=== PATIENT | male | born 1955 | race Native Hawaiian/Other Pacific Islander ===

== ENCOUNTER → 2017-07-22 | Outpatient (CLI) | payer BC ==
[2017-07-22 09:45] LABS: Basophils % (A) 0 %; Eosinophils # (A) 0.4 k/uL (0-0.7); Eosinophils % (A) 4 %; HGB 14.8 gm/dL (13.0-17.5); Lymphocytes # (A) 2.4 k/uL (1.0-4.8); Lymphocytes % (A) 26 %; MCH 30.8 pg (25.0-35.0); MCHC 33.6 g/dL (31.0-37.0); MCV 91.7 fL (80.0-100.0); Mean Platelet Volume 8.5; Monocytes # (A) 0.4 k/uL (0-1.0); Monocytes % (A) 5 %; Neutrophils # (A) 5.8 k/uL (1.3-7.7); Neutrophils % (A) 63 %; Platelet Count 266 k/uL (150-450); RDW 12.3 % (11.5-15.5); WBC 9.1 k/uL (3.8-10.6)
[2017-07-22 10:07] LABS: ALT 44 U/L (21-72); AST 17 U/L (17-59); Albumin 4.3 g/dL (3.5-5.0); Alkaline Phosphatase 87 U/L (38-126); Anion Gap 13 mmol/L; Blood Urea Nitrogen 17 mg/dL (9-20); Calcium 9.4 mg/dL (8.4-10.2); Carbon Dioxide 25 mmol/L (22-30); Chloride 106 mmol/L (98-107); Cholesterol 137 mg/dL (<200); Glucose 154 mg/dL (74-99); HDL Cholesterol 56 mg/dL (40-60); LDL Cholesterol,Calculated 70 mg/dL (0-99); Potassium 4.7 mmol/L (3.5-5.1); Sodium 144 mmol/L (137-145); Total Bilirubin 0.5 mg/dL (0.2-1.3); Total Protein 6.5 g/dL (6.3-8.2); Triglycerides 54 mg/dL (<150)
[2017-07-22 23:08] LABS: Hemoglobin A1C 6.7 % (4.0-6.0)
== END | disposition home or self-care (01) ==
LOC: LABWHC1 09:12
PROVIDERS: ATTEND Family Medicine
DX: Z00.01 Encounter for general adult medical examination with abnormal findings (principal); I10 Essential (primary) hypertension; E11.9 Type 2 diabetes mellitus without complications; I25.10 Atherosclerotic heart disease of native coronary artery without angina pectoris
CPT/HCPCS: 36415; 80053; 80061; 83036; 84443; 85025

== ENCOUNTER 2018-02-05 09:04 | Day surgery (SDC) | payer BC ==
[2018-01-31 10:19] VITALS: BMI 29.5
[~2018-02-05 09:04] MED LIST: DEXAMETHASONE SOD PHOSPHATE 10 MG/ML 1 ML VIAL IV ONE; HYDROmorphone 0.5 MG/0.5 ML SYRINGE IVP PRN; LACTATED RINGERS 1,000 ML IV SCH; LIDOCAINE 1% 20 ML VIAL (10MG/ML) FOR IV START INTRADERMA PRN; ONDANSETRON 4 MG/2 ML VIAL IVP ONE; SCOPOLAMINE 1.5MG/72HR PATCH TRANSDERM ONE
[2018-02-05 09:18] VITALS: RESP 16; TEMP 97
[2018-02-05 09:29] LABS: Glucose,Whole Blood 224 mg/dL (75-99)
[2018-02-05] MEDS ORDERED: INSULIN ASPART 100 UNIT/ML 1 ML 10 ML VIAL SQ ONE (09:37)
[2018-02-05] MEDS ORDERED: LIDOCAINE 1% INJ 10MG/ML (20 ML MDV) ONE (10:13)
[2018-02-05] MEDS ORDERED: PROPOFOL 10 MG/ML 20 ML VIAL IV ONE (10:13)
--- NOTE | 2018-02-05 10:27 | P.GSHP ---
History of Present Illness H&P Date: 02/05/18 Chief Complaint: Screening colonoscopy This is a 62-year-old male who presents today for screening colonoscopy. He's never had a colonoscopy before. Past Medical History Past Medical History: Coronary Artery Disease (CAD), Diabetes Mellitus, Hypertension Additional Past Medical History / Comment(s): clavicle fracture History of Any Multi-Drug Resistant Organisms: None Reported Past Surgical History: Cholecystectomy, Heart Catheterization With Stent Past Anesthesia/Blood Transfusion Reactions: No Reported Reaction Date of Last Stent Placement:: 10/14/15 Smoking Status: Light tobacco smoker - Past Family History Father Family Medical History: Cancer Additional Family Medical History / Comment(s): from prostate cancer Mother Family Medical History: No Reported History Medications and Allergies Home Medications Medication Instructions Recorded Confirmed Type Lisinopril [Prinivil] 10 mg PO DAILY 09/16/15 02/05/18 History Loratadine [Claritin] 10 mg PO DAILY PRN 09/16/15 02/05/18 History Atorvastatin [Lipitor] 80 mg PO HS #90 tab 10/15/15 02/05/18 Rx Metoprolol Tartrate [Lopressor] 25 mg PO BID #60 tab 10/15/15 02/05/18 Rx Nitroglycerin Sl Tabs [Nitrostat] 0.4 mg SUBLINGUAL Q5M PRN #30 tab 10/15/15 Rx Aspirin EC [Ecotrin] 325 mg PO DAILY 01/31/18 02/05/18 History Desvenlafaxine Succinate [Pristiq] 100 mg PO HS 01/31/18 02/05/18 History sitaGLIPtin PHOS/metFORMIN HCL 1 each PO BID 01/31/18 02/05/18 History [Janumet 50-1,000 mg Tablet] Allergies Allergy/AdvReac Type Severity Reaction Status Date / Time Penicillins Allergy Rash/Hives Verified 01/31/18 09:50 Surgical - Exam Vital Signs Temp Pulse Resp BP Pulse Ox 97.0 F L 75 16 159/82 98 02/05/18 09:17 02/05/18 09:17 02/05/18 09:17 02/05/18 09:17 02/05/18 09:17 - General well developed, no distress - Eyes PERRL - ENT normal pinna - Neck no masses - Respiratory normal expansion - Cardiovascular Rhythm: regular - Abdomen Abdomen: soft, non tender Results - Labs Abnormal Lab Results - Last 24 Hours (Table) 02/05/18 Range/Units 09:25 POC Glucose (mg/dL) 224 H (75-99) mg/dL Assessment and Plan Assessment: We'll perform screening colonoscopy.
[2018-02-05 10:50] LABS: Glucose,Whole Blood 192 mg/dL (75-99)
--- NOTE | 2018-02-05 10:52 | P.OP ---
Date of Procedure: 02/05/18 Preoperative Diagnosis: Screening colonoscopy Postoperative Diagnosis: Colon polyps Procedure(s) Performed: Colonoscopy Anesthesia: MAC Surgeon: Wali Alfaro Pathology: other (Rectal polyp, cecal polyp) Condition: stable Disposition: PACU Description of Procedure: The patient's placed on the endoscopy table in the lateral position. He received IV sedation. Digital rectal exam was performed which revealed no abnormalities. Flexible colonoscope was then placed patient anus and passed throughout the entire colon. The ileocecal valve was visualized. In the cecum there was a small sessile polyp was removed with the cold forcep. Scope was withdrawn remainder the ascending, transverse and descending colon appeared normal. Sigmoid colon appeared normal. Scope summer back the rectum and another sessile polyp was seen this removed with the cold forcep. Scope was withdrawn for patient.
[2018-02-05 11:12] VITALS: BP 132/74; PULSE 73
== END 2018-02-05 11:27 | disposition home or self-care (01) ==
LOC: ORWHC2ENDO 09:04
PROVIDERS: ATTEND Surgery
DX: Z12.11 Encounter for screening for malignant neoplasm of colon (principal); D12.0 Benign neoplasm of cecum; K62.1 Rectal polyp; I25.10 Atherosclerotic heart disease of native coronary artery without angina pectoris; E11.9 Type 2 diabetes mellitus without complications; E78.5 Hyperlipidemia, unspecified; I10 Essential (primary) hypertension; F32.9 Major depressive disorder, single episode, unspecified; F17.200 Nicotine dependence, unspecified, uncomplicated; Z95.5 Presence of coronary angioplasty implant and graft; Z79.84 Long term (current) use of oral hypoglycemic drugs; Z79.82 Long term (current) use of aspirin; Z79.899 Other long term (current) drug therapy; Z88.0 Allergy status to penicillin; Z90.49 Acquired absence of other specified parts of digestive tract
CPT/HCPCS: 88305; 45380; J2001; J2704

== ENCOUNTER 2019-09-07 16:58 | Emergency (ER) | payer BC ==
[2019-09-07 17:13] VITALS: BP 134/79; PULSE 90; RESP 18; TEMP 97.8
[2019-09-07] MEDS ORDERED: ERYTHROMYCIN 5 MG/GM OPHTH OINT 1 GM TUBE BOTH EYES STA (17:27)
[2019-09-07] MEDS ORDERED: PROPARACAINE 0.5% OPHTH DROPS 15 ML BTL LEFT EYE STA (17:27)
[2019-09-07] MEDS ORDERED: FLUORESCEIN STRIPS 1 MG STRIP LEFT EYE ONE (17:27)
--- NOTE | 2019-09-07 17:48 | ED ---
General Adult HPI - General Chief complaint: Eye Problems Stated complaint: FB IN EYE Time Seen by Provider: 09/07/19 17:15 Source: patient, RN notes reviewed Mode of arrival: ambulatory Limitations: no limitations - History of Present Illness Initial comments: 64-year-old male presents to the emergency department for left eye pain. Patient states he was working on the ceiling when a piece of a ceiling tile fell into his eye. Patient states he flushed this vigorously at home in the shower. However patient still feels like there is a piece stuck in his eye. Patient is up-to-date on tetanus 3 years ago. Patient denies contact use. Patient denies any visual deficits or changes. Patient has no other complaints at this time including shortness of breath, chest pain, abdominal pain, nausea or vomiting, headache, or visual changes. - Related Data Home Medications Medication Instructions Recorded Confirmed Lisinopril [Prinivil] 10 mg PO DAILY 09/16/15 02/05/18 Loratadine [Claritin] 10 mg PO DAILY PRN 09/16/15 02/05/18 Aspirin EC [Ecotrin] 325 mg PO DAILY 01/31/18 02/05/18 Desvenlafaxine Succinate [Pristiq] 100 mg PO HS 01/31/18 02/05/18 sitaGLIPtin PHOS/metFORMIN HCL 1 each PO BID 01/31/18 02/05/18 [Janumet 50-1,000 mg Tablet] Previous Rx's Medication Instructions Recorded Atorvastatin [Lipitor] 80 mg PO HS #90 tab 10/15/15 Metoprolol Tartrate [Lopressor] 25 mg PO BID #60 tab 10/15/15 Nitroglycerin Sl Tabs [Nitrostat] 0.4 mg SUBLINGUAL Q5M PRN #30 tab 10/15/15 Allergies Allergy/AdvReac Type Severity Reaction Status Date / Time Penicillins Allergy Rash/Hives Verified 09/07/19 17:13 Review of Systems ROS Statement: Those systems with pertinent positive or pertinent negative responses have been documented in the HPI. ROS Other: All systems not noted in ROS Statement are negative. Past Medical History Past Medical History: Coronary Artery Disease (CAD), Diabetes Mellitus, Hypertension Additional Past Medical History / Comment(s): clavicle fracture History of Any Multi-Drug Resistant Organisms: None Reported Past Surgical History: Cholecystectomy, Heart Catheterization With Stent Past Anesthesia/Blood Transfusion Reactions: No Reported Reaction Date of Last Stent Placement:: 10/14/15 Past Psychological History: No Psychological Hx Reported Smoking Status: Former smoker Past Alcohol Use History: Daily Past Drug Use History: None Reported - Past Family History Father Family Medical History: Cancer Additional Family Medical History / Comment(s): from prostate cancer Mother Family Medical History: No Reported History General Exam Limitations: no limitations General appearance: alert, in no apparent distress Head exam: Present: atraumatic, normocephalic, normal inspection Eye exam: Present: normal appearance, PERRL, EOMI, conjunctival injection (Conjunctival erythema without evidence of foreign body). Absent: scleral icterus, periorbital swelling ENT exam: Present: normal exam, mucous membranes moist Neck exam: Present: normal inspection, full ROM. Absent: tenderness, men ingismus, lymphadenopathy Respiratory exam: Present: normal lung sounds bilaterally. Absent: respiratory distress, wheezes, rales, rhonchi, stridor Cardiovascular Exam: Present: regular rate, normal rhythm, normal heart sounds. Absent: systolic murmur, diastolic murmur, rubs, gallop, clicks Neurological exam: Present: alert Psychiatric exam: Present: normal affect, normal mood Course Vital Signs 09/07/19 17:10 Temperature 97.8 F Pulse Rate 90 Respiratory 18 Rate Blood Pressure 134/79 O2 Sat by Pulse 99 Oximetry Medical Decision Making - Medical Decision Making The eye was numbed with proparacaine which completely alleviated his pain. I did a thorough inspection there is no evidence of foreign body in the conjunctiva. I flipped both eyelids without evidence of foreign body. The eye was stained with fluorescein stain in vision as was the Wood's lamp. There is abrasion at 12:00. Negative Hank sign. Patient is already up-to-date on tetanus. Was given erythromycin ointment. Patient will follow up with ophthalmology and primary care. He'll return here for any worsening symptoms. Disposition Clinical Impression: Corneal abrasion Disposition: HOME SELF-CARE Condition: Good Instructions (If sedation given, give patient instructions): Corneal Abrasion (ED) Additional Instructions: Please apply ointment every 6 hours for 7 days. Please follow-up with primary care and ophthalmology. If you have any worsening symptoms return here to the emergency room. Is patient prescribed a controlled substance at d/c from ED?: No Referrals: Loreto Salamanca MD [Primary Care Provider] - 1-2 days Argentina Anderson MD [STAFF PHYSICIAN] - 1-2 days Time of Disposition: 17:47
== END 2019-09-07 18:15 | disposition home or self-care (01) ==
LOC: EC 16:58
DX: S05.02XA Injury of conjunctiva and corneal abrasion without foreign body, left eye, initial encounter (principal); I25.10 Atherosclerotic heart disease of native coronary artery without angina pectoris; E11.9 Type 2 diabetes mellitus without complications; I10 Essential (primary) hypertension; Z79.82 Long term (current) use of aspirin; Z79.84 Long term (current) use of oral hypoglycemic drugs; Z79.899 Other long term (current) drug therapy; Z88.0 Allergy status to penicillin; Z87.891 Personal history of nicotine dependence; Z95.5 Presence of coronary angioplasty implant and graft; W20.8XXA Other cause of strike by thrown, projected or falling object, initial encounter
CPT/HCPCS: 99283

== ENCOUNTER → 2020-08-21 | Outpatient (CLI) | payer BC ==
[2020-08-21 14:21] LABS: Chol/HDL Ratio 2.39; LDL Cholesterol,Calculated 50.8 mg/dL (0.0-131.0); VLDL Calculation 17.2 mg/dL (5.00-40.00)
== END | disposition home or self-care (01) ==
LOC: LABWHC1 07:38
PROVIDERS: ATTEND Internal Medicine Cardiovascular Disease
DX: E78.2 Mixed hyperlipidemia (principal)
CPT/HCPCS: 36415; 80061; 84450; 84460

== ENCOUNTER 2020-12-14 13:00 | Observation (INO) | payer BC ==
--- NOTE | 2020-12-14 13:24 | ED ---
Chest Pain HPI - General Chief Complaint: Chest Pain Stated Complaint: Chest Pain Source: patient, EMS Mode of arrival: ambulatory Limitations: no limitations - History of Present Illness Initial Comments: 65-year-old male, pt of Dr. Loreto Salamanca, past medical history of coronary artery disease status post 1 stent 4 years ago presents emergency room with reported chest and abdominal pain which started this morning. He states that he had significant onset of pressure in his epigastric region which radiated up into his chest. States that it was 10 out of 10 pain. He had associated shortness of breath and diaphoresis. Denies any nausea or vomiting. called EMS. They did provide him with a nitro which resolved his pain. He takes a 325 mg aspirin daily. Patient arrives stating that the pressure is 4 out of 10. Admits to normal bowel or bladder function. No fevers, chills or cough. No other alleviating, Perceptin modifying factors - Related Data Home Medications Medication Instructions Recorded Confirmed Lisinopril [Prinivil] 10 mg PO DAILY 09/16/15 12/14/20 Aspirin EC [Ecotrin] 325 mg PO DAILY 01/31/18 12/14/20 Ascorbic Acid [Vitamin C] 1,000 mg PO DAILY 12/14/20 12/14/20 Cholecalciferol [Vitamin D3 (25 50 mcg PO DAILY 12/14/20 12/14/20 Mcg = 1000 Iu)] Dapagliflozin Propanediol [Farxiga] 10 mg PO DAILY 12/14/20 12/14/20 Lidocaine 5% Patch [Lidoderm 5% 1 patch TOPICAL DAILY PRN 12/14/20 12/14/20 Patch] Magnesium Oxide 400 mg PO DAILY 12/14/20 12/14/20 Shoshoni-3 Fatty Acids [Shoshoni-3] 1,000 mg PO DAILY 12/14/20 12/14/20 Thiamine [Vitamin B-1] 100 mg PO DAILY 12/14/20 12/14/20 sitaGLIPtin PHOS/metFORMIN HCL 1 tab PO BID 12/14/20 12/14/20 [Janumet Xr 50-1,000 mg Tablet] Previous Rx's Medication Instructions Recorded Atorvastatin [Lipitor] 80 mg PO HS #90 tab 10/15/15 Metoprolol Tartrate [Lopressor] 25 mg PO BID #60 tab 10/15/15 Famotidine [Pepcid] 20 mg PO BID #60 tablet 12/15/20 Allergies Allergy/AdvReac Type Severity Reaction Status Date / Time Penicillins Allergy Rash/Hives Verified 12/14/20 16:32 Review of Systems ROS Statement: Those systems with pertinent positive or pertinent negative responses have been documented in the HPI. ROS Other: All systems not noted in ROS Statement are negative. EKG Findings - EKG Comments: EKG Findings:: EKG demonstrates normal sinus rhythm with a ventricular rate 69. IL interval 160. QRS 90. QTC of 417. Q wave in lead 3. J-point elevation in the inferior leads. No acute ST segment elevations or reciprocal depressions Past Medical History Past Medical History: Coronary Artery Disease (CAD), Diabetes Mellitus, Hypertension Additional Past Medical History / Comment(s): clavicle fracture History of Any Multi-Drug Resistant Organisms: None Reported Past Surgical History: Cholecystectomy, Heart Catheterization With Stent Past Anesthesia/Blood Transfusion Reactions: No Reported Reaction Date of Last Stent Placement:: 10/14/15 Past Psychological History: No Psychological Hx Reported Smoking Status: Never smoker Past Alcohol Use History: Daily Past Drug Use History: None Reported - Past Family History Father Family Medical History: Cancer Additional Family Medical History / Comment(s): from prostate cancer Mother Family Medical History: No Reported History General Exam Limitations: no limitations General appearance: alert, in no apparent distress Head exam: Present: atraumatic, normocephalic, normal inspection Eye exam: Present: normal appearance, PERRL, EOMI. Absent: scleral icterus, conjunctival injection, periorbital swelling ENT exam: Present: normal exam, mucous membranes moist Neck exam: Present: normal inspection. Absent: tenderness, meningismus, lymphadenopathy Respiratory exam: Present: normal lung sounds bilaterally. Absent: respiratory distress, wheezes, rales, rhonchi, stridor Cardiovascular Exam: Present: regular rate, normal rhythm, normal heart sounds. Absent: systolic murmur, diastolic murmur, rubs, gallop, clicks GI/Abdominal exam: Present: soft, tenderness (epigastric), normal bowel sounds. Absent: distended, guarding, rebound, rigid Extremities exam: Present: normal inspection, full ROM, normal capillary refill. Absent: tenderness, pedal edema, joint swelling, calf tenderness Back exam: Present: normal inspection Neurological exam: Present: alert, oriented X3, CN II-XII intact Psychiatric exam: Present: normal affect, normal mood Skin exam: Present: warm, dry, intact, normal color. Absent: rash Course Vital Signs 12/14/20 12/14/20 12/14/20 13:02 13:11 14:00 Temperature 97.8 F Pulse Rate 69 69 69 Respiratory 16 13 18 Rate Blood Pressure 153/88 133/84 O2 Sat by Pulse 100 100 100 Oximetry 12/14/20 12/14/20 12/14/20 14:32 15:00 15:53 Temperature Pulse Rate 64 64 75 Respiratory 18 8 L 18 Rate Blood Pressure 111/79 111/79 130/88 O2 Sat by Pulse 100 100 100 Oximetry 12/14/20 12/14/20 12/14/20 16:00 17:00 17:50 Temperature Pulse Rate 70 64 77 Respiratory 18 6 L 16 Rate Blood Pressure 130/88 130/88 136/84 O2 Sat by Pulse 99 Oximetry 12/14/20 12/14/20 12/14/20 18:00 19:00 20:00 Temperature Pulse Rate 76 66 66 Respiratory 19 14 12 Rate Blood Pressure 136/84 136/84 118/78 O2 Sat by Pulse 99 Oximetry 12/14/20 12/14/20 12/14/20 21:00 22:00 22:30 Temperature 98.0 F Pulse Rate 60 71 66 Respiratory 12 16 18 Rate Blood Pressure 118/78 118/78 133/83 O2 Sat by Pulse 100 Oximetry 12/14/20 12/15/20 12/15/20 23:00 00:00 01:00 Temperature Pulse Rate 70 63 Respiratory 15 14 Rate Blood Pressure 133/83 133/83 133/83 O2 Sat by Pulse Oximetry 12/15/20 12/15/20 12/15/20 01:24 02:00 02:44 Temperature 98.4 F Pulse Rate 67 56 L 59 L Respiratory 18 18 18 Rate Blood Pressure 127/81 127/81 O2 Sat by Pulse 100 Oximetry 12/15/20 12/15/20 12/15/20 04:30 05:00 06:00 Temperature 97.8 F Pulse Rate 59 L 62 70 Respiratory 18 16 18 Rate Blood Pressure 127/81 129/89 O2 Sat by Pulse 100 Oximetry 12/15/20 12/15/20 12/15/20 07:00 09:05 12:47 Temperature 98 F Pulse Rate 57 L 75 106 H Respiratory 16 18 19 Rate Blood Pressure 129/89 135/91 133/90 O2 Sat by Pulse 99 96 Oximetry 12/15/20 15:40 Temperature 98 F Pulse Rate 106 H Respiratory 19 Rate Blood Pressure 133/90 O2 Sat by Pulse 96 Oximetry Chest Pain MDM - MDM Upon arrival patient is placed under a trauma 2. Thorough history and physical exam was performed. IV is established. I did offer her pain medications are patient refused. He reports his pain is 2 out of 10 at this time. I reviewed her studies were conducted. D-dimer 0.5. Lipase is 7531. Troponin negative. Chest x-ray was performed which uncertain acute crit opponent process. CT the patient's abdomen and pelvis demonstrates upper to mid abdominal enteritis as there are some prominent small bowel loops. Results are discussed with the patient. Did recommend admission for pancreatitis for which the patient did agree to. Spoke with Dr. Nowak who agreed to admit the patient. Patient awaiting a bed on the floor in stable condition Disposition Clinical Impression: Chest pain, Epigastric pain Disposition: HOME SELF-CARE Condition: Stable Is patient prescribed a controlled substance at d/c from ED?: No Decision to Admit Reason: Admit from EC Decision Date: 12/14/20 Decision Time: 15:50
[2020-12-14 13:40] LABS: Basophils # (A) 0.1 k/uL (0-0.2); Basophils % (A) 1 %; Eosinophils # (A) 0.6 k/uL (0-0.7); Eosinophils % (A) 7 %; HCT 42.4 % (39.0-53.0); HGB 14.6 gm/dL (13.0-17.5); Lymphocytes # (A) 1.7 k/uL (1.0-4.8); Lymphocytes % (A) 18 %; MCH 32.8 pg (25.0-35.0); MCHC 34.4 g/dL (31.0-37.0); MCV 95.4 fL (80.0-100.0); Mean Platelet Volume 8.6; Monocytes # (A) 0.4 k/uL (0-1.0); Monocytes % (A) 4 %; Neutrophils # (A) 6.7 k/uL (1.3-7.7); Neutrophils % (A) 70 %; Platelet Count 247 k/uL (150-450); RBC 4.44 m/uL (4.30-5.90); RDW 12.2 % (11.5-15.5); WBC 9.6 k/uL (3.8-10.6)
--- NOTE | 2020-12-14 13:51 | XR ---
EXAMINATION TYPE: XR chest 2V DATE OF EXAM: 12/14/2020 COMPARISON: Chest x-ray September 16, 2015 HISTORY: Chest pressure and pain. TECHNIQUE: Frontal and lateral views of the chest are obtained. FINDINGS: There is no suspicious focal air space opacity, pleural effusion, or pneumothorax seen. T he cardiac silhouette size is stable and within normal limits. Multilevel spurring in thoracic spine redemonstrated. Cholecystectomy clips are noted. IMPRESSION: No acute cardiopulmonary process. No significant change from prior.
[2020-12-14 13:52] LABS: ALT 57 U/L (4-49); AST 109 U/L (17-59); African American GFR (CKD) >90 (>60 ml/min/1.73 sqM); Albumin 3.9 g/dL (3.5-5.0); Alkaline Phosphatase 93 U/L (38-126); Anion Gap 10 mmol/L; Blood Urea Nitrogen 16 mg/dL (9-20); Calcium 9.3 mg/dL (8.4-10.2); Carbon Dioxide 17 mmol/L (22-30); Chloride 109 mmol/L (98-107); Glucose 167 mg/dL (74-99); Magnesium 2.1 mg/dL (1.6-2.3); Non-African American GFR(CKD) >90 (>60 ml/min/1.73 sqM); Sodium 136 mmol/L (137-145); Total Bilirubin 0.9 mg/dL (0.2-1.3); Total Protein 6.3 g/dL (6.3-8.2)
[2020-12-14 14:01] LABS: INR 0.9 (<1.2); Partial Thromboplastin Time 22.8 sec (22.0-30.0)
[2020-12-14 14:52] LABS: Lipase 7531 U/L (23-300)
[2020-12-14] MEDS ORDERED: NALOXONE 0.4 MG/ML 1 ML VIAL IV PRN (15:51)
[2020-12-14] MEDS: SODIUM CHLORIDE 0.9% 1,000 ML IV SCH (15:56)
--- NOTE | 2020-12-14 16:02 | CT ---
EXAMINATION TYPE: CT abdomen pelvis w con DATE OF EXAM: 12/14/2020 COMPARISON: None. HISTORY: Upper Abdominal pain. CT DLP: 991.9 mGycm, Automated Exposure Control for Dose Reduction was Utilized. CONTRAST: CT scan of the abdomen and pelvis is performed without oral but with IV Contrast, patient injected wi th 100 mL of Isovue 300. FINDINGS: LUNG BASES: No significant abnormality is appreciated. LIVER/GB: Cholecystectomy clips. PANCREAS: No significant abnormality is seen. SPLEEN: No significant abnormality is seen. ADRENALS: No significant abnormality is seen. KIDNEYS: Symmetric cortical medullary uptake and excretion without hydronephrosis seen bilaterally. S ome prominence of the surrounding retroperitoneal fat noted. Poor distention of bladder with moderate concentric wall thickening. Correlate clinically. BOWEL: Suboptimal evaluation of bowel without enteric contrast. Stomach not greatly distended and irene s suboptimally evaluated. Few small bowel loops in the upper to mid abdomen are slightly prominent wi th air-fluid levels. No greater than 3.0 cm abnormal dilatation. Fecal material seen in nondistended colon. PROSTATE/SEMINAL VESICLES: Prostate gland poorly visualized may be surgically absent or small in size . LYMPH NODES: No greater than 1cm abdominal or pelvic lymph nodes are appreciated. OSSEOUS STRUCTURES: Grade 1 anterolisthesis L5 on S1. Mild to moderate disc space narrowing and vacuu m disc phenomenon L3-L4 and L4-L5 levels. Multilevel facet arthropathy in the mid to lower lumbar spi ne. OTHER: Small fat-containing left inguinal hernia. Moderate calcified plaque of the abdominal aorta ex tends into branch vessels IMPRESSION: Overall nonspecific but favor a nonobstructive bowel gas pattern. Correlate for upper to mid abdominal enteritis as there are some prominent small bowel loops with air-fluid levels noted.
[2020-12-14] MEDS: ATORVASTATIN 80 MG TAB PO SCH (22:47)
[2020-12-14] MEDS: METOPROLOL TARTRATE 25 MG TAB PO SCH (22:47)
[2020-12-15] MEDS: SODIUM CHLORIDE 0.9% 1,000 ML IV SCH ×2 (01:35→14:28)
[2020-12-15 07:39] VITALS: TEMP 98
--- NOTE | 2020-12-15 07:43 | P.HPIM ---
History of Present Illness This is a pleasant 65 years old male with past medical history of hypertension, diabetes mellitus, coronary artery disease status post stenting Presents because of upper abdominal pain of one-day duration, felt like 9/10 in severity currently is 0/10 inches resolved. Pain is in the epigastric area, nonradiating felt like pressure relieved by kneeling. No nausea vomiting. He had regular bowel movement yesterday. He denies chest pain or dyspnea. No fever. No urinary symptoms. He denies smoking or illicit drugs. Beers a day and occasional wine Vitals are stable and patient is afebrile. unremarkable cbc, inr, bmp. d-dimer is normal at 0.5. Liver enzymes slightly elevated with AST 109 and ALT 57. Jose is normal at 0. 9. Troponin I negative 3 and rotavirus not detected Lipase is elevated at 7531 CT of the abdomen and pelvis with contrast showing diffuse small bowel loops in the upper to mid abdomen are slightly prominent with air-fluid levels. Overall nonspecific but favor a nonobstructive bowel gas pattern. Correlate for upper to mid abdomen enteritis as there are some prominent small bowel loops with air- fluid levels noted. EKG showed normal sinus rhythm at [address]-T changes Chest x-ray: No acute process. Patient was started on normal saline at 1 30 mL/h and consult GI team Review of Systems CONSTITUTIONAL: No fever, no malaise, no fatigue. HEENT: No recent visual problems or hearing problems. Denied any sore throat. CARDIOVASCULAR: No orthopnea, PND, no palpitations, no syncope. PULMONARY: No shortness of breath, no cough, no hemoptysis. GASTROINTESTINAL: No diarrhea, no nausea, no vomiting, Normoactive bowel sounds. NEUROLOGICAL: No headaches, no weakness, no numbness. HEMATOLOGICAL: Denies any bleeding or petechiae. GENITOURINARY: Denies any burning micturition, frequency, or urgency. MUSCULOSKELETAL/RHEUMATOLOGICAL: Denies any joint pain, swelling, or any muscle pain. ENDOCRINE: Denies any polyuria or polydipsia. Past Medical History Past Medical History: Coronary Artery Disease (CAD), Diabetes Mellitus, Hypertension Additional Past Medical History / Comment(s): clavicle fracture History of Any Multi-Drug Resistant Organisms: None Reported Past Surgical History: Cholecystectomy, Heart Catheterization With Stent Past Anesthesia/Blood Transfusion Reactions: No Reported Reaction Date of Last Stent Placement:: 10/14/15 Past Psychological History: No Psychological Hx Reported Smoking Status: Never smoker Past Alcohol Use History: Daily Past Drug Use History: None Reported - Past Family History Father Family Medical History: Cancer Additional Family Medical History / Comment(s): from prostate cancer Mother Family Medical History: No Reported History Medications and Allergies Home Medications Medication Instructions Recorded Confirmed Type Lisinopril [Prinivil] 10 mg PO DAILY 09/16/15 12/14/20 History Atorvastatin [Lipitor] 80 mg PO HS #90 tab 10/15/15 12/14/20 Rx Metoprolol Tartrate [Lopressor] 25 mg PO BID #60 tab 10/15/15 12/14/20 Rx Aspirin EC [Ecotrin] 325 mg PO DAILY 01/31/18 12/14/20 History Ascorbic Acid [Vitamin C] 1,000 mg PO DAILY 12/14/20 12/14/20 History Cholecalciferol [Vitamin D3 (25 50 mcg PO DAILY 12/14/20 12/14/20 History Mcg = 1000 Iu)] Dapagliflozin Propanediol [Farxiga] 10 mg PO DAILY 12/14/20 12/14/20 History Lidocaine 5% Patch [Lidoderm] 1 patch TOPICAL DAILY PRN 12/14/20 12/14/20 History Magnesium Oxide 400 mg PO DAILY 12/14/20 12/14/20 History Calder-3 Fatty Acids [Calder-3] 1,000 mg PO DAILY 12/14/20 12/14/20 History Thiamine [Vitamin B-1] 100 mg PO DAILY 12/14/20 12/14/20 History sitaGLIPtin PHOS/metFORMIN HCL 1 tab PO BID 12/14/20 12/14/20 History [Janumet Xr 50-1,000 mg Tablet] Allergies Allergy/AdvReac Type Severity Reaction Status Date / Time Penicillins Allergy Rash/Hives Verified 12/14/20 16:32 Physical Exam Vitals: Vital Signs Temp Pulse Resp BP Pulse Ox 12/15/20 06:00 97.8 F 70 18 129/89 100 12/15/20 04:30 59 L 18 12/15/20 02:44 59 L 18 12/15/20 01:24 98.4 F 67 18 127/81 100 12/14/20 22:30 98.0 F 66 18 133/83 100 12/14/20 20:00 66 18 118/78 99 12/14/20 17:50 77 16 136/84 99 12/14/20 15:53 75 18 130/88 100 12/14/20 14:32 64 18 111/79 100 12/14/20 13:02 97.8 F 69 16 153/88 100 GENERAL: The patient is alert and oriented x3, not in any acute distress. Well developed, well nourished. HEENT: Pupils are round and equally reacting to light. EOMI. No scleral icterus. No conjunctival pallor. Normocephalic, atraumatic. No pharyngeal erythema. No thyromegaly. CARDIOVASCULAR: S1 and S2 present. No murmurs, rubs, or gallops. PULMONARY: Chest is clear to auscultation, no wheezing or crackles. ABDOMEN: Soft, nontender, nondistended, normoactive bowel sounds. No palpable organomegaly. MUSCULOSKELETAL: No joint swelling or deformity. EXTREMITIES: No cyanosis, clubbing, or pedal edema. NEUROLOGICAL: Gross neurological examination did not reveal any focal deficits. SKIN: No rashes. No petechiae Results CBC & Chem 7: 12/14/20 13:16 12/14/20 13:16 Labs: Abnormal Lab Results - Last 24 Hours (Table) 12/14/20 Range/Units 13:16 Sodium 136 L (137-145) mmol/L Chloride 109 H (98-107) mmol/L Carbon Dioxide 17 L (22-30) mmol/L Glucose 167 H (74-99) mg/dL AST 109 H (17-59) U/L ALT 57 H (4-49) U/L Lipase 7531 H (23-300) U/L Assessment and Plan Assessment: acute pancreatitis, could be alcoholic Possible enteritis with air-fluid level Alcohol abuse Hypertension Diabetes mellitus History of coronary artery disease status post stent placement Plan: This is a pleasant 65 years old male who presents with enteritis and pancreatitis Check liver ultrasound Follow-up GI consult Continue with gentle hydration Check a pro-calcitonin Labs and medication were reviewed.. Continue same treatment. Continue with symptomatic treatment. Resume home medication. Monitor lytes and vitals. DVT and GI prophylaxis. Further recommendations depends on the clinical course of the patient DVT prophylaxis: Subcutaneous heparin GI Prophylaxis: Ppi Prognosis is guarded
[2020-12-15 07:54] LABS: Basophils # (A) 0.1 k/uL (0-0.2); Basophils % (A) 1 %; Eosinophils # (A) 0.9 k/uL (0-0.7); Eosinophils % (A) 10 %; HCT 42.9 % (39.0-53.0); HGB 14.4 gm/dL (13.0-17.5); Lymphocytes # (A) 1.9 k/uL (1.0-4.8); Lymphocytes % (A) 21 %; MCH 32.6 pg (25.0-35.0); MCHC 33.7 g/dL (31.0-37.0); MCV 96.9 fL (80.0-100.0); Mean Platelet Volume 8.4; Monocytes # (A) 0.4 k/uL (0-1.0); Monocytes % (A) 5 %; Neutrophils # (A) 5.6 k/uL (1.3-7.7); Neutrophils % (A) 62 %; Platelet Count 227 k/uL (150-450); RBC 4.42 m/uL (4.30-5.90); RDW 12.3 % (11.5-15.5)
[2020-12-15 08:04] LABS: African American GFR (CKD) >90 (>60 ml/min/1.73 sqM); Anion Gap 7 mmol/L; Blood Urea Nitrogen 11 mg/dL (9-20); Carbon Dioxide 21 mmol/L (22-30); Chloride 110 mmol/L (98-107); Glucose 104 mg/dL (74-99); Lipase 268 U/L (23-300); Non-African American GFR(CKD) >90 (>60 ml/min/1.73 sqM); Sodium 138 mmol/L (137-145)
[2020-12-15 08:43] LABS: Albumin 3.4 g/dL (3.5-5.0); Albumin/Globulin Ratio 1.5; Bilirubin,Unconjugated 0.6 mg/dL (0.0-1.1); Globulin 2.3 g/dL; Total Bilirubin 0.7 mg/dL (0.2-1.3); Total Protein 5.7 g/dL (6.3-8.2)
--- NOTE | 2020-12-15 08:46 | US ---
EXAMINATION TYPE: US liver DATE OF EXAM: 12/15/2020 COMPARISON: CT 12/14/2020 CLINICAL HISTORY: elevated liver enz. GB removed. No pain. EXAM MEASUREMENTS: Liver Length: 15.3 cm CBD: 0.8 cm. This is slightly prominent. Normal up to 0.6 cm in a patient of this age Right Kidney: 11.2 x 5.8 x 6.6 cm Pancreas: Obscured by bowel gas Liver: wnl Gallbladder: Surgically absent Evidence for sonographic Trimble's sign: neg CBD: Minimally dilated Right Kidney: No hydronephrosis or masses seen. There is a rounded density measuring 3.[address] This is not identified on recent CT examination. Monitoring with ultrasound is recommended. This may be a dromedary hump. IMPRESSION: 1. Somewhat prominent common bile duct at 0.8 cm. Normal less than 0.6 cm. 2. 3 cm fullness of the mid inferior right renal cortex not identified on recent CT examination. Foll ow-up ultrasound in 6 months is recommended.
[2020-12-15] MEDS: METOPROLOL TARTRATE 25 MG TAB PO SCH (08:59)
[2020-12-15] MEDS: ATORVASTATIN 80 MG TAB PO SCH (09:00)
[2020-12-15] MEDS ORDERED: THIAMINE 100 MG TAB PO SCH (09:00)
[2020-12-15] MEDS ORDERED: PANTOPRAZOLE 40 MG/10 ML VIAL IVP SCH (09:00)
[2020-12-15] MEDS ORDERED: lisinopriL 10 MG TAB PO SCH (09:00)
[2020-12-15] MEDS ORDERED: ASPIRIN 325 MG TAB PO SCH (09:00)
[2020-12-15] MEDS ORDERED: HEPARIN SODIUM,PORCINE/PF 5,000 UNIT/0.5 ML SYRINGE SQ SCH (09:00)
[2020-12-15] MEDS ORDERED: MAGNESIUM OXIDE 400 MG TAB PO SCH (09:00)
--- NOTE | 2020-12-15 12:22 | P.CONS ---
History of Present Illness - Reason for Consult Consult date: 12/15/20 Pacreatitis Requesting physician: Josh E She - Chief Complaint Chest pain/epigastric pain - History of Present Illness This is a pleasant 65-year-old male who presented to the emergency department yesterday morning for complaints of acute onset of pressure in the epigastric region which radiated up through his chest. He has a past medical history of coronary artery disease status post stents, diabetes mellitus, and hypertension. The patient states the pain was a 10 out of 10 when it began and he stated he had some shortness of breath and diaphoresis associated. He denied any associated nausea or vomiting. Patient denies any previous similar symptoms. On admission he was noted to have elevation in his LFTs as well as his lipase. Total bilirubin was 0.9 AST 109 ALT 57 alkaline phosphatase 93 and lipase 7531. Patient does admit to drinking Craft beer at least 2-3 a day for the last 2-3 years duration. He denies any previous history of pancreatitis. He denies any new medications or family history of pancreatitis. He had a CT of the abdomen and pelvis that showed overall nonspecific but favor a nonobstructive bowel gas pattern. Correlate for upper to mid abdominal enteritis as there are some prominent small bowel loops with air filled levels noted. Pancreas had no significant abnormality seen. Ultrasound of the liver that showed a CBD of 0.8 cm that is slightly prominent, 3 cm fullness of the mid inferior right renal cortex not identified on recent CT examination. Follow-up ultrasound in 6 months recommended. The patient states his pain lasted approximately 1-2 hours at most. He denies any abdominal pain currently, no nausea, no vomiting. He is been tolerating clear liquid diet. Repeat labs this morning WBC 9.0 hemoglobin 14.4 hematocrit 42 platelet count 227,000 total bilirubin 0.7 AST 32 ALT 54 alkaline phosphatase 102 lipase 268 Review of Systems REVIEW OF SYSTEMS: CARDIOPULMONARY: No chest pain or shortness of breath. Gastrointestinal: Epigastric and upper abdominal region pressure, now subsided No nausea or vomiting. No hematemesis, coffee-ground emesis. No rectal bleeding, or melena. GENITOURINARY: No dysuria or hematuria. MUSCULOSKELETAL: Reports normal range of motion., Joint pain. SKIN: No rashes. No jaundice. ENDOCRINE: No chills, fevers. No excessive weight gain or loss. No polydipsia or polyuria. PSYCHIATRIC: Unremarkable. NEUROLOGY: No change in mental status. Denies dizziness, headache. ENT: Vision unremarkable. CONSTITUTIONAL: No recent weight loss. No fever, chills, night sweats. Past Medical History Past Medical History: Coronary Artery Disease (CAD), Diabetes Mellitus, Hyperten rachel Additional Past Medical History / Comment(s): clavicle fracture History of Any Multi-Drug Resistant Organisms: None Reported Past Surgical History: Cholecystectomy, Heart Catheterization With Stent Past Anesthesia/Blood Transfusion Reactions: No Reported Reaction Date of Last Stent Placement:: 10/14/15 Past Psychological History: No Psychological Hx Reported Smoking Status: Never smoker Past Alcohol Use History: Daily Past Drug Use History: None Reported - Past Family History Father Family Medical History: Cancer Additional Family Medical History / Comment(s): from prostate cancer Mother Family Medical History: No Reported History Medications and Allergies Home Medications Medication Instructions Recorded Confirmed Type Lisinopril [Prinivil] 10 mg PO DAILY 09/16/15 12/14/20 History Atorvastatin [Lipitor] 80 mg PO HS #90 tab 10/15/15 12/14/20 Rx Metoprolol Tartrate [Lopressor] 25 mg PO BID #60 tab 10/15/15 12/14/20 Rx Aspirin EC [Ecotrin] 325 mg PO DAILY 01/31/18 12/14/20 History Ascorbic Acid [Vitamin C] 1,000 mg PO DAILY 12/14/20 12/14/20 History Cholecalciferol [Vitamin D3 (25 50 mcg PO DAILY 12/14/20 12/14/20 History Mcg = 1000 Iu)] Dapagliflozin Propanediol [Farxiga] 10 mg PO DAILY 12/14/20 12/14/20 History Lidocaine 5% Patch [Lidoderm] 1 patch TOPICAL DAILY PRN 12/14/20 12/14/20 History Magnesium Oxide 400 mg PO DAILY 12/14/20 12/14/20 History [place]-3 Fatty Acids [[place]-3] 1,000 mg PO DAILY 12/14/20 12/14/20 History Thiamine [Vitamin B-1] 100 mg PO DAILY 12/14/20 12/14/20 History sitaGLIPtin PHOS/metFORMIN HCL 1 tab PO BID 12/14/20 12/14/20 History [Janumet Xr 50-1,000 mg Tablet] Allergies Allergy/AdvReac Type Severity Reaction Status Date / Time Penicillins Allergy Rash/Hives Verified 12/14/20 16:32 Physical Exam Vitals: Vital Signs Temp Pulse Resp BP Pulse Ox 12/15/20 09:05 75 18 135/91 99 12/15/20 07:00 98 F 57 L 16 129/89 12/15/20 06:00 97.8 F 70 18 129/89 100 12/15/20 05:00 62 16 127/81 12/15/20 04:30 59 L 18 12/15/20 02:44 59 L 18 12/15/20 02:00 56 L 18 127/81 12/15/20 01:24 98.4 F 67 18 127/81 100 12/15/20 01:00 133/83 12/15/20 00:00 63 14 133/83 12/14/20 23:00 70 15 133/83 12/14/20 22:30 98.0 F 66 18 133/83 100 12/14/20 22:00 71 16 118/78 12/14/20 21:00 60 12 118/78 12/14/20 20:00 66 12 118/78 99 12/14/20 19:00 66 14 136/84 12/14/20 18:00 76 19 136/84 12/14/20 17:50 77 16 136/84 99 12/14/20 17:00 64 6 L 130/88 12/14/20 16:00 70 18 130/88 12/14/20 15:53 75 18 130/88 100 12/14/20 15:00 64 8 L 111/79 100 12/14/20 14:32 64 18 111/79 100 12/14/20 14:00 69 18 133/84 100 12/14/20 13:11 69 13 100 12/14/20 13:02 97.8 F 69 16 153/88 100 General appearance: The patient is alert, oriented, appears in no acute distress. HET: Head is normocephalic and atraumatic. Conjunctiva pink. Sclera anicteric. Neck: Supple without lymphadenopathy. Trachea midline. Heart: S1 S2. Regular rate and rhythm. Lungs: Clear to auscultation. Abdomen: Soft, nontender, nondistended with bowel sounds. No guarding or rigidity. Skin: No rashes. No jaundice. Extremities: Normal skin color and turgor. No pedal edema. Neurological: No focal deficits. Alert and oriented 3.. Results CBC & Chem 7: 12/15/20 07:00 12/15/20 07:29 Labs: Abnormal Lab Results - Last 24 Hours (Table) 12/14/20 12/15/20 12/15/20 Range/Units 13:16 07:00 07:29 Eosinophils # 0.9 H (0-0.7) k/uL Sodium 136 L (137-145) mmol/L Chloride 109 H 110 H (98-107) mmol/L Carbon Dioxide 17 L 21 L (22-30) mmol/L Creatinine 0.64 L (0.66-1.25) mg/dL Glucose 167 H 104 H (74-99) mg/dL AST 109 H (17-59) U/L ALT 57 H (4-49) U/L Total Protein (6.3-8.2) g/dL Albumin (3.5-5.0) g/dL Lipase 7531 H (23-300) U/L 12/15/20 Range/Units 07:29 Eosinophils # (0-0.7) k/uL Sodium (137-145) mmol/L Chloride (98-107) mmol/L Carbon Dioxide (22-30) mmol/L Creatinine (0.66-1.25) mg/dL Glucose (74-99) mg/dL AST (17-59) U/L ALT 54 H (4-49) U/L Total Protein 5.7 L (6.3-8.2) g/dL Albumin 3.4 L (3.5-5.0) g/dL Lipase (23-300) U/L Comments: CT of the abdomen and pelvis that showed overall nonspecific but favor a nonobst ructive bowel gas pattern. Correlate for upper to mid abdominal enteritis as there are some prominent small bowel loops with air filled levels noted. Pancreas had no significant abnormality seen. Ultrasound of the liver that showed a CBD of 0.8 cm that is slightly prominent, 3 cm fullness of the mid inferior right renal cortex not identified on recent CT examination. Follow-up ultrasound in 6 months recommended. Assessment and Plan (1) Acute pancreatitis Narrative/Plan: 65-year-old male who presented to the emergency department with acute onset of epigastric pain and upper abdominal pressure which at that time rated a 10 out of 10. Patient states the pain lasted approximately 1-2 hours at the most. He did receive nitro by EMS because of a history of coronary artery disease with previous stenting. He states that the nitro did improve the pain. He denies any previous episodes of similar pain. On admission he was noted to have an elevated lipase 7531 consistent with acute pancreatitis. Patient denied any previous history of pancreatitis. He denies any new medications, he is status post cholecystectomy greater than 20 years ago for gallstones. He does admit to drinking daily at least 2-3 Beers for the last 2-3 years since being retired. Patient states pain has completely resolved, he denies any associated nausea or vomiting. Repeat labs today total bilirubin 0.7 AST 32 ALT 54 alkaline phosphatase [address] of the abdomen with no acute findings, ultrasound of the liver shows status post cholecystectomy with mildly prominent CBD measuring 0.8 cm. However there is no elevation in bilirubin, LFTs are normalizing and not likely dealing with a gallstone pancreatitis. Likely were dealing with uncomplicated acute alcoholic pancreatitis. Discuss with patient importance of alcohol abstinence. We'll also check triglycerides. Current Visit: Yes Status: Acute Code(s): K85.90 - ACUTE PANCREATITIS WITHOUT NECROSIS OR INFECTION, UNSP SNOMED Code(s): 738773250 (2) Epigastric pain Current Visit: Yes Status: Acute Code(s): R10.13 - EPIGASTRIC PAIN SNOMED Code(s): 85505375 Plan: 1. Hepatic function panel 2. Advance to full liquid diet 3. Continue pain medication as needed 4. Triglycerides ordered 5. Discussed importance of alcohol abstinence 6. If patient tolerates full liquid diet and pain continues to be improved, patient may be cleared later today for discharge if otherwise medically stable Thank you for this consultation, we will continue to follow. Dr. Edgardo Pillai I agree with the dictator's note, documented as a scribe by Ryanne Lacey.
[2020-12-15 12:47] VITALS: BP 133/90; PULSE 106; RESP 19
== END 2020-12-15 15:41 | disposition home or self-care (01) ==
LOC: EC 13:00 → INTOOBSV 15:51 → 3SCARD 15:51 → 5NMEDONC 12-15 07:45 → UNDODISIN 12-15 15:41
PROVIDERS: ADMIT Internal Medicine; ATTEND Internal Medicine
DX: K85.90 Acute pancreatitis without necrosis or infection, unspecified (principal); F10.10 Alcohol abuse, uncomplicated; I10 Essential (primary) hypertension; E11.9 Type 2 diabetes mellitus without complications; I25.10 Atherosclerotic heart disease of native coronary artery without angina pectoris; Z20.822 Contact with and (suspected) exposure to COVID-19; Z79.82 Long term (current) use of aspirin; Z79.84 Long term (current) use of oral hypoglycemic drugs; Z79.899 Other long term (current) drug therapy; Z88.0 Allergy status to penicillin; Z87.81 Personal history of (healed) traumatic fracture; Z95.5 Presence of coronary angioplasty implant and graft; Z90.49 Acquired absence of other specified parts of digestive tract; Z80.42 Family history of malignant neoplasm of prostate
CPT/HCPCS: 96372; 96374; 99285 ×2; 36415; 93005; 85379; 80053; 80048; 80076; 83690 ×2; 83735; 84478; 84484; 85025 ×2; 85610; 85730; 84145; 87635; 71046; 76705; 74177; G0378 ×3; C9113; Q9967; J1644

== ENCOUNTER → 2021-01-18 | Outpatient (CLI) | payer BC | END | disposition home or self-care (01) | LOC: LABWHC1 14:10 | PROVIDERS: ATTEND Urology | DX: R97.20 Elevated prostate specific antigen [PSA] (principal) | CPT/HCPCS: 36415; 84153 ==

== ENCOUNTER → 2021-06-29 | Outpatient (CLI) | payer BC | END | disposition home or self-care (01) | LOC: LABWHC1 13:23 | PROVIDERS: ATTEND Urology | DX: R97.20 Elevated prostate specific antigen [PSA] (principal) | CPT/HCPCS: 36415; 84153 ==

== ENCOUNTER → 2021-09-22 | Outpatient (CLI) | payer BC ==
--- NOTE | 2021-09-22 16:31 | P.SLEEP ---
History of Present Illness DATE: 09/22/2021 CONSULTATION/NEW PATIENT EVALUATION HISTORY OF PRESENT ILLNESS/SLEEP-WAKE EVALUATION: 66year old gentleman had been evaluated in the sleep center for possible obstructive sleep apnea hypopnea syndrome. SLEEP SCHEDULE: Usually sleep schedule from 11 PM to 10 AM. FALLING ASLEEP Sometimes patient has problems with falling asleep, has TV set in bedroom] DURING SLEEP:She usually sleeps on the back position, with loud snoring and witnessed episodes of apneas by his . She wakes up from sleep 3 times with sweating and nocturia.] No history of hypnogogical hallucinations, sleep paralysis, or cataplexy. DURING THE DAY/WAKE STATE Patient feels sleepiness during the day]. [place] sleepiness scale i increased to 11] She take a nap one time around 5 PM]. PAST MEDICAL HISTORY Hypertension, diabetes, hyperlipidemia lipidemia, coronary artery disease, prostate CA.] PAST SURGICAL HISTORY Stent insertion to coronary arteries, postatectomy 2 years ago] MEDICATIONS Metoprolol 25 mg twice a day, lisinopril 10 mg once a day, atorvastatin 80 mg once a day, aspirin 325 mg once a day, Janumet twice a day, F arxiga 10 mg once a day] SOCIAL HISTORY Positive ]for smoking cigars occasionally for 10 years, alcohol consumption occasional. FAMILY HISTORY:Hypertension, cancer, diabetes] REVIEW OF SYSTEMS Snoring, witnessed sleep apneas, multiple awakenings from sleep. ]No fevers. No double vision. No recent chest pain. No shortness of breath. No abdominal pain. No bleeding episodes. No blood in urine. No seizure episodes. PHYSICAL EXAMINATION: GENERAL: A pleasant patient without any distress. VITAL SIGNS: B 99/58 , H 66 , R 16 , weigh 171.8 pounds, heigh 5 ][place] 8 ]inches, body mass inde 26.1 . HEENT: PERRLA, EOMI. Evaluation of oropharynx showed tongue protrudes midline, low position of soft palate Mallampat 4]. NECK: Supple. No JVD. Thyroid is not palpable 15-1/2 inches in circumference. LUNGS: Clear to percussion and to auscultation. Good air exchange. No wheezing or rhonchi. HEART: S1, S2 regular. No murmurs, gallops or rubs. ABDOMEN: Soft and nontender. Bowel sounds are present. No organomegaly appreciated. EXTREMITIES: No clubbing or cyanosis. THEATRICAL AGENT: Awake, alert, and oriented x3. Cranial nerves 2 to 7 intact. There is no fasciculation or atrophy noted. No focal deficits observed. ASSESSMENT: 1 Snoring, witnessed apneas during sleep, multiple awakenings from sleep, small oropharyngeal air space low position of soft palate Mallampati 4, sleepiness [place] Sleepiness Scale increased to 11. Obstructive sleep apnea hypopnea syndrome]. 2 Hypertension]. 3 diabetes mellitus]. 4 Coronary artery disease status post stent insertion]. 5 history of prostate CA, status post prostatectomy]. 6 Hyperlipidemia]. PLAN: 1. Polysomnography for evaluation of patient's breathing during sleep. 2. CPAP/BiPAP titration if sleep study confirms obstructive sleep apnea- hypopnea syndrome. 3. Preferable position during sleep on the side. 4. No driving if patient feels any sleepiness. Patient is aware of civil and criminal liability for unsafe driving. 5. Sleep hygiene with regular sleep time for at least 7.5-8 hours. 6. Watching weight. Sincerely, Carlos Howard MD, PhD, FAASM. Diplomat of [employer], Sleep Medicine Board by [employer] Supervisor [employer] Past Medical History Past Medical History: Coronary Artery Disease (CAD), Diabetes Mellitus, Hypertension Additional Past Medical History / Comment(s): clavicle fracture History of Any Multi-Drug Resistant Organisms: None Reported Past Surgical History: Cholecystectomy, Heart Catheterization With Stent Past Anesthesia/Blood Transfusion Reactions: No Reported Reaction Date of Last Stent Placement:: 10/14/15 Past Psychological History: No Psychological Hx Reported Smoking Status: Never smoker Past Alcohol Use History: Daily Past Drug Use History: None Reported - Past Family History Father Family Medical History: Cancer Additional Family Medical History / Comment(s): from prostate cancer Mother Family Medical History: No Reported History Medications and Allergies Home Medications Medication Instructions Recorded Confirmed Type lisinopriL [Prinivil] 10 mg PO DAILY 09/16/15 12/14/20 History Atorvastatin [Lipitor] 80 mg PO HS #90 tab 10/15/15 12/14/20 Rx Metoprolol Tartrate [Lopressor] 25 mg PO BID #60 tab 10/15/15 12/14/20 Rx Aspirin EC [Ecotrin] 325 mg PO DAILY 01/31/18 12/14/20 History Ascorbic Acid [Vitamin C] 1,000 mg PO DAILY 12/14/20 12/14/20 History Cholecalciferol [Vitamin D3 (25 50 mcg PO DAILY 12/14/20 12/14/20 History Mcg = 1000 Iu)] Dapagliflozin Propanediol [Farxiga] 10 mg PO DAILY 12/14/20 12/14/20 History Lidocaine 5% Patch [Lidoderm 5% 1 patch TOPICAL DAILY PRN 12/14/20 12/14/20 Hi story Patch] Magnesium Oxide 400 mg PO DAILY 12/14/20 12/14/20 History [place]-3 Fatty Acids [[place]-3] 1,000 mg PO DAILY 12/14/20 12/14/20 History Thiamine [Vitamin B-1] 100 mg PO DAILY 12/14/20 12/14/20 History sitaGLIPtin PHOS/metFORMIN HCL 1 tab PO BID 12/14/20 12/14/20 History [Janumet Xr 50-1,000 mg Tablet] Famotidine [Pepcid] 20 mg PO BID #60 tablet 12/15/20 Rx Allergies Allergy/AdvReac Type Severity Reaction Status Date / Time Penicillins Allergy Rash/Hives Verified 12/14/20 16:32 Sleep Note - Sleep Note Sleep Note: Temperature: Pulse Rate: Respiratory Rate: Blood Pressure: SpO2: Height: Weight: BMI: Neck Circumference:
== END | disposition home or self-care (01) ==
LOC: SLEEP 14:49
PROVIDERS: ATTEND Internal Medicine
DX: R06.83 Snoring (principal); I10 Essential (primary) hypertension; E11.9 Type 2 diabetes mellitus without complications; I25.10 Atherosclerotic heart disease of native coronary artery without angina pectoris; E78.5 Hyperlipidemia, unspecified; Z85.46 Personal history of malignant neoplasm of prostate

== ENCOUNTER → 2021-11-17 | Outpatient (CLI) | payer BC ==
--- NOTE | 2021-11-19 10:33 | CTL ---
EXAMINATION TYPE: CT Low Dose Lung DATE OF EXAM ORDERED: 11/17/2021 HISTORY: . Lung cancer screening CT DLP: 98.[address] CTDI: 2.70 mGy Automated exposure control for dose reduction was used. SCREENING VISIT: COMPARISON: None TECHNIQUE: Low dose computed tomography scan was performed through the chest at 1 mm thick sections a nd reconstructed images in multiple planes at 1 mm and [address] DIAGNOSTIC QUALITY: Satisfactory FINDINGS: LUNG NODULES: There is a 2 mm nodule left lung apex axial image 29. LUNGS: Lungs are clear. No pleural effusion or pneumothorax. No focal pneumonia. No pleural thickening or ca lcification. OTHER FINDINGS: Heart size is normal. There is dense coronary artery calcification distribution of the LAD. Aorta of normal caliber. There is mild atherosclerotic changes. Hypertrophic and degenerative change of the spine. There is a small hiatal hernia. Surgical clips in the gallbladder fossa. Arthropathy of the internal clavicular joint on the right. IMPRESSION: 1. There is a benign-appearing 2 mm subpleural nodule left upper lobe. 2. Dense coronary artery distribution of the LAD correlate clinically. CT LUNG RAD AND CT CHEST RECOMMENDATION: Lung-Rad 2 Benign Appearance or Behavior: Continue annual sc reening with LDCT in 12 months. S Modifier (other clinically significant findings): S
== END | disposition home or self-care (01) ==
LOC: RADCTMAIN 16:30
PROVIDERS: ATTEND Family Medicine
DX: Z12.2 Encounter for screening for malignant neoplasm of respiratory organs (principal); Z87.891 Personal history of nicotine dependence
CPT/HCPCS: 71271

== ENCOUNTER → 2022-08-30 | Outpatient (CLI) | payer BC | END | disposition home or self-care (01) | LOC: LABWHC1 11:03 | PROVIDERS: ATTEND Urology | DX: C61 Malignant neoplasm of prostate (principal) | CPT/HCPCS: 36415; 84153 ==